=== PATIENT | female | born 1985 | race Caucasian/White ===

== ENCOUNTER 2017-09-13 07:03 | Inpatient (IN) | payer BC ==
[~2017-09-13] VITALS: Ht 167.6 cm; Wt 103.2 kg
[~2017-09-13 07:03] MED LIST: HUMALOG100 U/ML SC; MOTRIN 800800 MG/TAB PO; NOVOLIN N100 U/ML SC; PERCOCET 325 MG1 TA2 PO; PRENATAL1 TA2 PO; ZOVIRAX 200MG200 MG PO
[2017-09-14] VITALS (42 sets, daily range): BP systolic 95–144; BP diastolic 51–67; PULSE 59–134; TEMP 98.4–98.6
[2017-09-14] MEDS ORDERED: GLUCOPHAGE1000 MG PO (07:22)
[2017-09-14] MEDS ORDERED: ZOVIRAX 200MG200 MG PO (07:22)
[2017-09-14] MEDS ORDERED: LEVEMIR100 U/ML SQ (07:23)
[2017-09-14 08:35] LABS: BASO % 0.2 % (0.0-2.0); EOS # 0.1 (0.0-0.7); EOS % 0.6 % (0-4.0); GRAN # 7.2 (1.4-6.5); GRAN % 73.2 % (42.2-75.2); LYMPH # 1.9 (1.2-3.4); LYMPH % 19.5 % (20.0-51.0); MEAN CELL VOLUME 81 fl (80.0-100.0); MEAN CORPUSCULAR HGB CONC 33 g/dl (33.0-37.0); MEAN PLATELET VOLUME 9.6 fl (7.4-10.4); MONO # 0.6 (0.1-0.6); MONO % 6.1 % (1.7-9.3); PLATELET COUNT 326 K/mm3 (130-400); RED BLOOD COUNT 4.32 M/mm3 (4.10-5.30); WHITE BLOOD COUNT 9.9 K/mm3 (4.8-10.8)
[2017-09-14 08:37] LABS: HEMOGLOBIN 11.5 g/dl (12.5-16.0); MEAN CORPUSCULAR HEMOGLOBIN 27 pg (27.0-31.0)
[2017-09-15] VITALS: BP 108/52; PULSE 61; TEMP 97.5
[2017-09-15 08:00] VITALS: BP 111/51; PULSE 70; TEMP 98.1
[2017-09-15] MEDS ORDERED: PERCOCET 325 MG1 TA2 PO (09:34)
[2017-09-15] MEDS ORDERED: IBU800 M1 PO (09:34)
[2017-09-15 17:00] VITALS: BP 110/62; PULSE 88; TEMP 97.8
== END 2017-09-15 18:15 | disposition home or self-care (01) | DRG 774 ==
LOC: LDR 07:03 → OB 09-14 06:57 → LDR 09-14 07:04 → OB 09-14 19:00 → EDSTATUS 09-23 07:01 → LDRO 09-23 12:30
PROVIDERS: Student in an Organized Health Care Education/Training Program
PROC: 10E0XZZ Delivery of Products of Conception, External Approach (ICD-10-PCS; principal; 2017-09-14)
PROC: 0KQM0ZZ Repair Perineum Muscle, Open Approach (ICD-10-PCS; 2017-09-14)
PROC: 3E033VJ Introduction of Other Hormone into Peripheral Vein, Percutaneous Approach (ICD-10-PCS; 2017-09-14)
DX: O40.3XX0 Polyhydramnios, third trimester, not applicable or unspecified (principal); O24.12 Pre-existing type 2 diabetes mellitus, in childbirth; E11.9 Type 2 diabetes mellitus without complications; O70.1 Second degree perineal laceration during delivery; Z3A.39 39 weeks gestation of pregnancy; Z37.0 Single live birth; Z79.4 Long term (current) use of insulin
CPT/HCPCS: J1815; J2590; J2795; J7030

== ENCOUNTER → 2018-04-13 | Outpatient (CLI) | payer BC ==
[~2018-04-13] MED LIST changes: +GLUCOPHAGE1000 MG PO; +IBU800 M1 PO; +LEVEMIR100 U/ML SQ
== END ==
LOC: MHCPAIN 09:50
DX: G89.29 Other chronic pain (principal); M47.817 Spondylosis without myelopathy or radiculopathy, lumbosacral region; M54.16 Radiculopathy, lumbar region; M53.3 Sacrococcygeal disorders, not elsewhere classified; M48.061 Spinal stenosis, lumbar region without neurogenic claudication
CPT/HCPCS: G0463

== ENCOUNTER → 2018-06-27 | Outpatient (CLI) | payer BC | LOC: MHCPAIN 10:20 | DX: G89.29 Other chronic pain (principal); M47.817 Spondylosis without myelopathy or radiculopathy, lumbosacral region; M54.16 Radiculopathy, lumbar region; M53.3 Sacrococcygeal disorders, not elsewhere classified | CPT/HCPCS: G0463 ==

== ENCOUNTER → 2018-12-07 | Outpatient (CLI) | payer BC | LOC: MHCPAIN 10:18 | DX: G89.29 Other chronic pain (principal); M47.817 Spondylosis without myelopathy or radiculopathy, lumbosacral region; M53.3 Sacrococcygeal disorders, not elsewhere classified; M54.16 Radiculopathy, lumbar region | CPT/HCPCS: G0463 ==

== ENCOUNTER → 2018-12-22 | Outpatient (CLI) | payer BC | LOC: MHCPAIN 10:50 | DX: M47.817 Spondylosis without myelopathy or radiculopathy, lumbosacral region (principal); M54.16 Radiculopathy, lumbar region | CPT/HCPCS: J1100; Q9967 ==

== ENCOUNTER → 2019-01-02 | Outpatient (CLI) | payer BC | LOC: MHCPAIN 09:31 | DX: G89.29 Other chronic pain (principal); M47.817 Spondylosis without myelopathy or radiculopathy, lumbosacral region; M53.3 Sacrococcygeal disorders, not elsewhere classified; M79.2 Neuralgia and neuritis, unspecified | CPT/HCPCS: G0463 ==

== ENCOUNTER → 2019-01-17 | Outpatient (CLI) | payer BC | LOC: MHCPAIN 14:23 | DX: G57.11 Meralgia paresthetica, right lower limb (principal) | CPT/HCPCS: J1040 ==

== ENCOUNTER → 2019-02-13 | Outpatient (CLI) | payer BC | LOC: MHCPAIN 09:54 | DX: G89.29 Other chronic pain (principal); M47.817 Spondylosis without myelopathy or radiculopathy, lumbosacral region; M54.16 Radiculopathy, lumbar region; M53.3 Sacrococcygeal disorders, not elsewhere classified; M79.2 Neuralgia and neuritis, unspecified | CPT/HCPCS: G0463 ==

== ENCOUNTER → 2020-02-12 | Outpatient (CLI) | payer BC | LOC: COL.RAD 02-06 13:30 | DX: E04.1 Nontoxic single thyroid nodule (principal) ==

== ENCOUNTER → 2020-09-19 | Outpatient (CLI) | payer BC ==
[~2020-09-19] MED LIST changes: +ASPIRIN 81M81 MG/TA2 PO; +OMEGA-3 1000 MG1 CAP PO; +ZYRTEC 10MG10 MG PO
== END ==
LOC: COL.RAD 11:40
DX: E04.0 Nontoxic diffuse goiter (principal); E04.1 Nontoxic single thyroid nodule

== ENCOUNTER → 2021-02-20 | Outpatient (CLI) | payer BC | LOC: MC.RAD 11:16 | DX: Z12.31 Encounter for screening mammogram for malignant neoplasm of breast (principal) ==

== ENCOUNTER → 2021-09-10 | Outpatient (CLI) | payer BC | LOC: COL.RAD 10:06 | DX: E04.1 Nontoxic single thyroid nodule (principal) ==

== ENCOUNTER → 2022-08-04 | Outpatient (CLI) | payer BC | LOC: MC.RAD 13:40 | DX: Z12.31 Encounter for screening mammogram for malignant neoplasm of breast (principal) ==